=== PATIENT | male | born 2000 | race Caucasian/White ===

== ENCOUNTER 2021-12-20 15:26 | Outpatient (CLI) | payer BC | END 2021-12-20 15:27 | disposition home or self-care (01) | LOC: BICRAD 15:26 | PROVIDERS: ATTEND Internal Medicine Gastroenterology | DX: R19.8 Other specified symptoms and signs involving the digestive system and abdomen (principal); F90.9 Attention-deficit hyperactivity disorder, unspecified type | CPT/HCPCS: 74018 ==